=== PATIENT | male | born 1980 | race Hispanic/Latino ===

== ENCOUNTER 2019-11-23 14:07 | Emergency (ER) | payer SELFPAY ==
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
[2019-11-23 14:16] VITALS: BP 135/89; PULSE 95; RESP 16; TEMP 36.3; O2SAT 98
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
[2019-11-23 17:35] VITALS: BP 122/70; PULSE 80; RESP 20; TEMP 36.7; O2SAT 99
== END 2019-11-23 17:36 | disposition home or self-care (01) ==
PROVIDERS: Emergency Provider Emergency Medicine
DX: S39.012A Strain of muscle, fascia and tendon of lower back, initial encounter (principal); V49.40XA Driver injured in collision with unspecified motor vehicles in traffic accident, initial encounter; M47.816 Spondylosis without myelopathy or radiculopathy, lumbar region
CPT/HCPCS: 72100; 73502; 99284